=== PATIENT | female | born 1975 | race Caucasian/White ===

== ENCOUNTER 2018-09-14 11:35 | Emergency (ER) | payer SELFPAY ==
--- OUTSIDE RECORDS SUMMARY | 2018-09-14 11:37 | XMS REPORT | Clinical Summary ---
:[address] [facility] Address [address] [place] [address] Phone Care Team Providers Name Role Phone Unavailable Primary Care Provider Unavailable Allergies No Known Allergies Current Medications Prescription Sig. Disp. Refills Start Date End Date Status predniSONE (DELTASONE) 5 Take 5 mg by mouth Active MG tablet daily. loratadine (CLARITIN) 10 Take 10 mg by mouth Active mg tablet daily. acetaminophen-codeine Take 1 tablet by Active (TYLENOL #4) 300-60 mg mouth every 4 per tablet (four) hours as needed for Pain. ibuprofen (ADVIL,MOTRIN) Take 100 mg by Active 100 MG tablet mouth every 6 (six) hours as needed for Fever. Active Problems Not on file Social History Tobacco Use Types Packs/Day Years Used Date Current Every Day Smoker 1 25 Smokeless Tobacco: Never Used Tobacco Cessation: Ready to Quit: No; Counseling Given: Yes Sex Assigned at Date Recorded Not on file Last Filed Vital Signs Not on file Plan of Treatment Not on file Results Not on fileafter 09/13/2017
--- OUTSIDE RECORDS SUMMARY | 2018-09-14 11:38 | XMS REPORT | Continuity of Care Document ---
:1975 Author Organization Interface Problems Problem Status Onset Classification Date Comments Source Date Reported At risk of Active Problem 12/01/2017 Medical diabetes Group mellitus Multiple Active Problem 12/01/2017 Medical thyroid Group nodules Medications Medication Details Route Status Patient Ordering Order Source Instructions Provider Date Synthroid PO, Daily, Inactive MH 0 018 Medical Refill(s) Group Claritin Daily, 0 Active Refill(s) 018 Medical Group prednisolone 5 5 mg=1 Active MH MG Oral Tablet tab, PO, 018 Medical Daily, # 7 Group tab, 0 Refill(s) clindamycin 150 150 mg=1 Active MH mg oral capsule cap, PO, 018 Medical Q6H, # 28 Group cap, 0 Refill(s) carisoprodol 350 350 mg=1 Active MH mg oral tablet tab, PO, 018 Medical QID, 0 Group Refill(s) multivitamin Daily, 0 Active Refill(s) 018 Medical Group Acetaminophen 325 mg=1 Active 325 MG Oral cap, PO, 018 Medical Capsule TID, 0 Group [Tylenol] Refill(s) Ibuprofen 0 Active Refill(s) 018 Medical Group Allergies, Adverse Reactions, Alerts Substance Category Reaction Severity Reaction Status Date Comments Source type Reported Immunizations Immunization Date Given Site Status Last Updated Comments Source Hx influenza 11/06/2017 completed [facility] vaccine-unspecifi Group ed Results Order Results Value Reference Date Interpretation Comments Source Name Range Vital Signs Vital Sign Value Date Comments Source Height 165.1 cm 11/28/2017 Medical Group Weight 59.545 11/28/2017 Medical Group BMI Calculated 21.84 11/28/2017 Medical Group Systolic (mm Hg) 124 11/28/2017 Medical Group Diastolic (mm Hg) 77 11/28/2017 Medical Group Heart Rate 85 11/28/2017 Medical Group Encounters Location Location Encounter Encounter Reason Attending ADM DC Status Source Details Type Number For Provider Date Date Visit Outpatient [id number] [place] 11/28 [facility] LETY II Luis [facility] Outpatient [id number] Luis 11/28 11/29 [facility]2017 [facility] Upper Senior Procedures Procedure Code Date Perfomer Comments Source Ovary operation [id number] Medical Group
--- OUTSIDE RECORDS SUMMARY | 2018-09-14 11:38 | XMS REPORT ---
:1975 [facility] Address [address] [place] [address] Care Team Providers Name Role Phone HALIMA STEWART Unavailable Unavailable Problems This patient has no known problems. Allergies, Adverse Reactions, Alerts This patient has no known allergies or adverse reactions. Medications This patient has no known medications. Results Test Description Test Time Test Comments Text Results Atomic Results Result Comments CYTOLOGY 2017-09-17 Medical Cytology Report 14:11:00 Case: [id number] Authorizing Provider: Halima Stewart MD Collected: 09/11/2017 1100 Ordering Location: [facility] Radiology Main Received: 09/11/2017 1148 Pathologist: Jackie Gonzalez MD Specimen: Thyroid LEFT THYROID ISTHMUS, FNA (CYTOSPINS) - DIAGNOSTIC CATEGORY: BENIGN - ADENOMATOID NODULE WITH CYSTIC DEGENERATION (SEE COMMENT) Signing Pathologist Direct Phone Line: [phone] signed by Jackie Gonzalez MD on 09/17/2017 at 2:11 PMCytospins show clusters of bland follicular cells with Hurthle cell changes, in a background of proteinaceous material, neutrophils and occasional macrophages. No diagnostic features of papillary thyroid carcinoma are seen. Taken together, those findings are most compatible with adenomatoid nodule with cystic changes. Intradepartmental consultation: Dr. Jose Vallejo has reviewed this case and concurs with the diagnosis.[id number] thyroid isthmus nodule measuring 1.9 x 0.5 x 1.4 cmLEFT THYROID ISTHMUS FNA30 ml of cytorich red; 4 cytospinsCollected: 09/11/17Received: 08/25/17[facility], [address] [place] [address], [facility] of [facility], [address] [place] [address], CYTOLOGY 2017-09-17 Medical Cytology Report 14:09:00 Case: [id number] Authorizing Provider: Halima Stewart MD Collected: 09/11/2017 1100 Ordering Location: [facility] Radiology Ultrasound Received: 09/11/2017 1148 Pathologist: Jackie Gonzalez MD Specimen: Thyroid, Left LEFT MID THYROID FNA (CYTOSPINS,CELLBLOCK) - DIAGNOSTIC CATEGORY: BENIGN - ADENOMATOID NODULE WITH CYSTIC DEGENERATION (SEE COMMENT) Signing Pathologist Direct Phone Line: [phone] signed by Jackie Gonzalez MD on 09/17/2017 at 2:09 PMCytospins and cell block sections show clusters of bland follicular cells with focal Hurthle cell changes, in a background of scant colloid, frequent neutrophils and scattered macrophages. No diagnostic features of papillary thyroid carcinoma are seen. Taken together, those findings are most compatible with adenomatoid nodule with cystic changes. Intradepartmental consultation: Dr. Jose Vallejo has reviewed this case and concurs with the diagnosis.[id number], [id number] thyroid mid nodule measuring 1.2 x 0.7 x 0.9 cmLEFT MID THYROID RLX20qp of cytorich red; 4 cytospins, 1 cell blockCollected: 09/11/17Received: 09/11/17[facility], Department of Pathology, [address] [place] [address], [facility], Department of Pathology, [address] [place] [address], U/S, FINE NEEDLE 2017-09-11 Reason for FINAL REPORT PATIENT ID: ASPIRATION, 16:52:00 Exam:->thyroid [id number] Ultrasound guided fine THYROID single nodule needle aspiration biopsy, nontoxic 09/11/2017 Clinical History: Thyroid nodules Sedation: None. First Dyer: Yunier. Airways Operations Specialist: None. Estimated Blood Loss: none Specimen: 4 FNA samples. All placed in CytoRich fluid and sent to pathology. Technique: Informed consent was obtained. The risks of pain, bleeding, infection, injury to thyroid/adjacent structures and adverse medication reactions were discussed with the patient. After informed consent was obtained, the patient's thyroid gland was scanned. In the isthmus there is a cystic nodule which measures approximately 1.4 cm in diameter. In the upper pole of the left lobe there is a 1.2 cm nodule which contains microcalcifications. Both of these were targeted for fine-needle aspiration. After the skin was prepped and draped in the usual sterile manner and local anesthesia was achieved with 1% lidocaine, a 25 gauge needle was advanced into the left upper pole nodule, under direct sonographic observation. A total of 4 passes were made. Next a 22-gauge needle was used to aspirate the isthmus cyst. The patient tolerated the procedure well, without immediate complications. The patient was discharged from the department in good condition. Impression:Successful and uncomplicated ultrasound guided fine needle aspiration of the thyroid gland as described above. Signed: Ervin Valera MDReport Verified Date/Time: 09/11/2017 16:52:56 Reading Location: [address] Ultrasound Reading Room
--- OUTSIDE RECORDS SUMMARY | 2018-09-14 11:38 | XMS REPORT | Summary of Care ---
:1975 Author Organization [facility] Primary Care [facility] Address [address] [place] [address]- Encounter HQ Lauren(FIN) [id number] Date(s): 11/28/17 - 11/28/17 [facility] Primary Care [facility] [address] [place] [address] [phone] Discharge Disposition: Home or Self Care Attending Physician: Roberto Flores MD Referring Physician: Luis Maurice MD Vital Signs Most recent to oldest [Reference Range]: 1 Height 165.1 cm (11/28/17 11:12 AM) Blood Pressure [90-140/60-90 mmHg] 124/77 mmHg (11/28/17 11:12 AM) Peripheral Pulse Rate [60-100 bpm] 85 bpm (11/28/17 11:12 AM) Weight 59.545 kg (11/28/17 11:12 AM) Body Mass Index 21.84 m2 (11/28/17 11:12 AM) Problem List Condition Effective Dates Status Health Status Informant At risk of diabetes Active mellitus(Confirmed) Multiple thyroid nodules(Confirmed) Active Allergies, Adverse Reactions, Alerts Substance Reaction Severity Status NKDA Active Medications carisoprodol 350 mg oral tablet 350 mg=1 tab, PO, QID, 0 Refill(s) Start Date: 11/28/17 Status: OrderedClaritin Daily, 0 Refill(s) Start Date: 11/28/17 Status: Orderedclindamycin 150 mg oral capsule 150 mg=1 cap, PO, Q6H, # 28 cap, 0 Refill(s) Start Date: 11/28/17 Stop Date: 12/05/17 Status: Orderedibuprofen 0 Refill(s) Start Date: 11/28/17 Status: Orderedmultivitamin Daily, 0 Refill(s) Start Date: 11/28/17 Status: OrderedprednisoLONE 5 mg oral tablet 5 mg=1 tab, PO, Daily, # 7 tab, 0 Refill(s) Start Date: 11/28/17 Stop Date: 12/05/17 Status: OrderedSynthroid PO, Daily, 0 Refill(s) Start Date: 11/28/17 Stop Date: 11/28/17 Status: DiscontinuedTylenol 325 mg oral capsule 325 mg=1 cap, PO, TID, 0 Refill(s) Start Date: 11/28/17 Status: Ordered Results No data available for this section Immunizations Given and Recorded Vaccine Date Status Refusal Reason Hx influenza vaccine-unspecified 11/06/17 Recorded Procedures Procedure Date Related Diagnosis Body Site Ovary operation Social History Social History Type Response Smoking Status Current every day smoker; Type: Cigarettes; Exposure to Tobacco Smoke self; Cigarette Smoking Last 365 Days Yes; Reg Smoking Cessation Counseling No Assessment and Plan No data available for this section
--- NOTE | 2018-09-14 12:09 | EDPHYS ---
Physician Documentation [facility] Name: Cheyanne Gresham Age: 43 yrs Sex: Female : 1975 Arrival Date: 09/14/2018 Time: 11:38 Bed 18 Private MD: None, None ED Physician Aditya Maki HPI: 09/14 12:46 This 43 yrs old Female presents to ER via Ambulatory with complaints of snw Nausea, Diarrhea, Abdominal Pain. 12:46 The patient presents to the emergency department with nausea, diarrhea, abdominal pain. snw Possible causes: sick contacts, patient, "up to my elbows in his stuff" + C. diff. Associated signs and symptoms: Pertinent positives: diarrhea. Severity of symptoms: At their worst the symptoms were moderate severe in the emergency department the symptoms unable to provide sample. The patient has experienced a previous episode. The patient has not recently seen a physician. 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 - Social history:: Smoking status: Patient uses tobacco products, smokes one pack cigarettes per day. - Ebola Screening: : Patient denies travel to an Ebola-affected area in the 21 days before illness onset. ROS: 12:44 Constitutional: Negative for fever, chills, and weight loss, Eyes: Negative for injury, snw pain, redness, and discharge, ENT: Negative for injury, pain, and discharge, Neck: Negative for injury, pain, and swelling, Cardiovascular: Negative for chest pain, palpitations, and edema, Respiratory: Negative for shortness of breath, cough, wheezing, and pleuritic chest pain, Back: Negative for injury and pain, : Negative for injury, bleeding, discharge, and swelling, MS/Extremity: Negative for injury and deformity, Skin: Negative for injury, rash, and discoloration, Neuro: Negative for headache, weakness, numbness, tingling, and seizure. 12:44 Abdomen/GI: Positive for diarrhea, abdominal cramps. Exam: 12:37 Constitutional: This is a well developed, well nourished patient who is awake, alert, snw and in no acute distress. Head/Face: Normocephalic, atraumatic. Eyes: Pupils equal round and reactive to light, extra-ocular motions intact. Lids and lashes normal. Conjunctiva pale and sclera are non-icteric and not injected. Cornea within normal limits. Periorbital areas with no swelling, redness, or edema. ENT: Nares patent. No nasal discharge, no septal abnormalities noted. Tympanic membranes are normal and external auditory canals are clear. Oropharynx with no redness, swelling, or masses, exudates, or evidence of obstruction, uvula midline. Mucous membranes moist. Neck: Trachea midline, no thyromegaly or masses palpated, and no cervical lymphadenopathy. Supple, full range of motion without nuchal rigidity, or vertebral point tenderness. No Meningismus. Chest/axilla: Normal chest wall appearance and motion. Nontender with no deformity. No lesions are appreciated. Cardiovascular: Regular rate and rhythm with a normal S1 and S2. No gallops, murmurs, or rubs. Normal PMI, no JVD. No pulse deficits. Respiratory: Lungs have equal breath sounds bilaterally, clear to auscultation and percussion. No rales, rhonchi or wheezes noted. No increased work of breathing, no retractions or nasal flaring. Abdomen/GI: Soft, non-tender, with normal bowel sounds. No distension or tympany. No guarding or rebound. No evidence of tenderness throughout. Back: No spinal tenderness. No costovertebral tenderness. Full range of motion. Skin: Warm, dry with normal turgor. Normal color with no rashes, no lesions, and no evidence of cellulitis. MS/ Extremity: Pulses equal, no cyanosis. Neurovascular intact. Full, normal range of motion. Neuro: Awake and alert, GCS 15, oriented to person, place, time, and situation. Cranial nerves II-XII grossly intact. Motor strength 5/5 in all extremities. Sensory grossly intact. Cerebellar exam normal. Normal gait. Psych: Awake, alert, with orientation to person, place and time. Behavior, mood, and affect are within normal limits. Vital Signs: 11:52 BP 131 / 84; Pulse 84; Resp 16; Temp 98.2; Pulse Ox 99% on R/A; Weight 54.43 kg (R); aj1 Height 5 ft. 5 in. (165.10 cm) (R); Pain 0/10; 11:52 Body Mass Index 19.97 (54.43 kg, 165.10 cm) aj1 MDM: 12:08 Patient medically screened. snw 12:44 Data reviewed: vital signs, nurses notes. Data interpreted: Pulse oximetry: on room air snw is 99 %. Interpretation: normal. Counseling: I had a detailed discussion with the patient and/or guardian regarding: the historical points, exam findings, and any diagnostic results supporting the discharge/admit diagnosis, the presence of at least one elevated blood pressure reading (>120/80) during this emergency department visit, the need for outpatient follow up, to return to the emergency department if symptoms worsen or persist or if there are any questions or concerns that arise at home. Special discussion: Based on the history and exam findings, there is no indication for further emergent testing or inpatient evaluation. I discussed with the patient/guardian the need to see the primary care provider for further evaluation of the symptoms. Administered Medications: 12:26 Drug: vancoMYCIN 250 mg Route: PO; em 12:27 Follow up: Response: Medication administered at discharge. em 12:26 Drug: Bentyl 20 mg Route: PO; em 12:27 Follow up: Response: Medication administered at discharge. em Disposition: 15:18 Co-signature as Attending Physician, Aditya Maki MD I agree with the assessment and kdr plan of care. Disposition: 09/14/18 12:08 Discharged to Home. Impression: Diarrhea, unspecified. - Condition is Stable. - Discharge Instructions: Diarrhea, Adult, Clostridium Difficile Infection, Rehydration, Adult, Clostridium Difficile FAQs - WILLAMS. - Prescriptions for Flagyl 500 mg Oral Tablet - take 1 tablet by ORAL route every 8 hours for 10 days; 30 tablet. - Medication Reconciliation Form, Thank You Letter, Antibiotic Education, Prescription Opioid Use form. - Follow up: Private Physician; When: 2 - 3 days; Reason: Recheck today's complaints, Continuance of care, Re-evaluation by your physician. Follow up: Emergency Department; When: As needed; Reason: Worsening of condition. Signatures: Dispatcher [employer] [facility] Yolie Rosas, RN RN aj1 Aditya Maki MD MD kdr Cele Lynne, CENSUS TAKER-C CENSUS TAKER-Csnw King Lux, GEAR NICKER GEAR NICKER em Corrections: (The following items were deleted from the chart) 12:01 12:00 Occult Blood+PA.LAB.BRZ ordered. [facility] 12:28 12:08 09/14/2018 12:08 Discharged to Home. Impression: Diarrhea, unspecified. Condition em is Stable. Forms are Medication Reconciliation Form, Thank You Letter, Antibiotic Education, Prescription Opioid Use. Follow up: Private Physician; When: 2 - 3 days; Reason: Recheck today's complaints, Continuance of care, Re-evaluation by your physician. Follow up: Emergency Department; When: As needed; Reason: Worsening of condition. snw 14:39 12:28 09/14/2018 12:08 Discharged to Home. Impression: Diarrhea, unspecified. Condition snw is Stable. Discharge Instructions: Diarrhea, Adult, Clostridium Difficile Infection, Rehydration, Adult, Clostridium Difficile FAQs - WILLAMS. Prescriptions for vancomycin 250 mg Oral capsule - take 1 capsule by ORAL route every 6 hours; 40 capsule. and Forms are Medication Reconciliation Form, Thank You Letter, Antibiotic Education, Prescription Opioid Use. Follow up: Private Physician; When: 2 - 3 days; Reason: Recheck today's complaints, Continuance of care, Re-evaluation by your physician. Follow up: Emergency Department; When: As needed; Reason: Worsening of condition. em
--- NOTE | 2018-09-14 12:09 | ER ---
Nurse's Notes [facility] Name: Cheyanne Gresham Age: 43 yrs Sex: Female : 1975 Arrival Date: 09/14/2018 Time: 11:38 Bed 18 Private MD: None, None Diagnosis: Diarrhea, unspecified Presentation: 09/14 11:47 Presenting complaint: Patient states: Abdominal cramping, diarrhea, and nausea for the aj1 past couple of days. 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 States that she just finished taking cephalexin for a sinus infection and an infected toe. Denies vomiting. Transition of care: patient was not received from another setting of care. Onset of symptoms was September 12, 2018. Risk Assessment: Do you want to hurt yourself or someone else? Patient reports no desire to harm self or others. Initial Sepsis Screen: Does the patient meet any 2 criteria? No. Patient's initial sepsis screen is negative. Does the patient have a suspected source of infection? Yes: Acute abdominal pain. Care prior to arrival: None. 11:47 Method Of Arrival: Ambulatory [facility] 11:47 Acuity: ABBY 3 aj1 Triage Assessment: 11:52 General: Appears in no apparent distress. comfortable, Behavior is calm, cooperative, aj1 appropriate for age. Pain: Denies pain. Neuro: Level of Consciousness is awake, alert, obeys commands. Cardiovascular: Patient's skin is warm and dry. Respiratory: Airway is patent Respiratory effort is even, unlabored, Respiratory pattern is regular, symmetrical. GI: Reports cramping, diarrhea, nausea. 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 - Social history:: Smoking status: Patient uses tobacco products, smokes one pack cigarettes per day. - Ebola Screening: : Patient denies travel to an Ebola-affected area in the 21 days before illness onset. Screenin:10 Abuse screen: Denies threats or abuse. Nutritional screening: No deficits noted. em Tuberculosis screening: No symptoms or risk factors identified. Fall Risk None identified. Assessment: 12:10 General: Appears in no apparent distress. uncomfortable, Behavior is calm, cooperative. em Pain: Denies pain. Neuro: Level of Consciousness is awake, alert, obeys commands, Oriented to person, place, time, situation. Cardiovascular: Capillary refill < 3 seconds Patient's skin is warm and dry. Respiratory: Airway is patent Respiratory effort is even, unlabored, Respiratory pattern is regular, symmetrical. GI: Abdomen is flat, Stools are reported to be diarrhea. Abd is soft X 4 quads Abdomen is tender to palpation X 4 quads. Reports diarrhea, nausea, vomiting, Patient currently denies bloody stool. : No signs and/or symptoms were reported regarding the genitourinary system. EENT: No signs and/or symptoms were reported regarding the EENT system. Derm: Skin is intact, Skin is pink, warm \T\ dry. Musculoskeletal: Capillary refill < 3 seconds, Range of motion: intact in all extremities. Vital Signs: 11:52 BP 131 / 84; Pulse 84; Resp 16; Temp 98.2; Pulse Ox 99% on R/A; Weight 54.43 kg (R); aj1 Height 5 ft. 5 in. (165.10 cm) (R); Pain 0/10; 11:52 Body Mass Index 19.97 (54.43 kg, 165.10 cm) aj1 ED Course: 11:38 Patient arrived in ED. mr 11:38 None, None is Private Physician. mr 11:38 Cele Lynne FNP-C is [facility]. snw 11:38 Aditya Maki MD is Attending Physician. snw 11:51 Triage completed. aj1 11:52 Arm band placed on Patient placed in an exam room. aj1 12:02 King Lux LVN is Primary Nurse. em 12:10 Patient has correct armband on for positive identification. Bed in low position. Call em light in reach. Adult w/ patient. 12:10 No provider procedures requiring assistance completed. Patient did not have IV access em during this emergency room visit. 14:38 Primary Nurse role handed off by Lux, King, AGENT PRODUCER snw Administered Medications: 12:26 Drug: vancoMYCIN 250 mg Route: PO; em 12:27 Follow up: Response: Medication administered at discharge. em 12: Drug: Bentyl 20 mg Route: PO; em 12:27 Follow up: Response: Medication administered at discharge. em Outcome: 12:08 Discharge ordered by MD. snw 12:27 Discharged to home ambulatory, with family. em 12: Condition: good 12:27 Discharge instructions given to patient, Instructed on discharge instructions, follow up and referral plans. medication usage, Demonstrated understanding of instructions, follow-up care, medications, Prescriptions given X 1. 12:28 Patient left the ED. em 14:39 Patient left the ED. snw Signatures: Yolie Rosas RN RN aj1 Cele Lynne, MOLD CAPPER HELPER-C MOLD CAPPER HELPER-Csnw Clara Bird mr Kign Lux, AGENT PRODUCER AGENT PRODUCER em
[2018-09-14] MEDS ORDERED: DICYCLOMINE HCL 10 MG CAP ONE (12:19)
[2018-09-14] MEDS ORDERED: VANCOMYCIN ORAL SOLN 250 MG/5 ML OSYR PO ONE (12:30)
== END 2018-09-14 14:39 | disposition home or self-care (01) ==
LOC: ER 11:35
DX: R19.7 Diarrhea, unspecified (principal); M06.9 Rheumatoid arthritis, unspecified; F17.210 Nicotine dependence, cigarettes, uncomplicated
CPT/HCPCS: 99283

== ENCOUNTER 2020-08-03 08:30 | Day surgery (SDC) | payer SELFPAY ==
--- OUTSIDE RECORDS SUMMARY | 2020-08-03 08:46 | XMS REPORT | Clinical Summary ---
:1975 Author Organization [facility] Address [address] [place] [address] Care Team Providers Name Role Phone Brigette Primary Care Provider Allergies No Known Allergies Medications Medication Sig Dispensed Refills Start Date End Date Status predniSONE (DELTASONE) Take 5 mg by mouth 0 Active 5 MG tablet daily. loratadine (CLARITIN) Take 10 mg by 0 Active 10 mg tablet mouth daily. acetaminophen-codeine Take 1 tablet by 0 Active (TYLENOL #4) 300-60 mg mouth every 4 per tablet (four) hours as needed for Pain. ibuprofen Take 100 mg by 0 Activ e (ADVIL,MOTRIN) 100 MG mouth every 6 tablet (six) hours as needed for Fever. Active Problems Not on file Social History Tobacco Use Types Packs/Day Years Used Date Current Every Day Smoker 1 25 Smokeless Tobacco: Never Used Tobacco Cessation: Ready to Quit: No; Co unseling Given: Yes Sex Assigned at Date Recorded Not on file Job Start Date Occupation Industry Not on file Not on file Not on file Travel History Travel Start Travel End No recent travel history available. Last Filed Vital Signs Not on file Plan of Treatment Not on file Results Not on fileafter 08/03/2019 Insurance Payer Benefit Plan / Group Subscriber ID Type Phone A ddress [employer] PA[employer] OP DIAGNSTC IMGING PKG xxxxxxxxx (Work)
--- OUTSIDE RECORDS SUMMARY | 2020-08-03 08:47 | XMS REPORT | Continuity of Care Document ---
:1975 Author Organization [facility] t Address [address] [place] [address] Care Team Providers Name Role Phone Sharpless Primary Care Physician Alex Arzate II Attending Clinician Odalys STEWART Attending Clinician Unavailable Frankie SCHULTZ Admitting Clinician Unavailable Problems Condition Condition Condition Status Onset Resolution Last Treating Co mments Source Name Details Category Date Date Treatment Clinician Date At risk of Problem Active 2019-09-02 M emoria diabetes 23:22:36 l mellitus At risk Jodee nn (finding) of diabetes mellitus (finding) Active Problem 09/02/2019 Medical Group Goiter Problem Active 2019-09-02 Memor ia (disorder) 23:22:36 l Goiter Luis (disorder) Active Problem 09/02/2019 Medical Group Multinodul Problem Active 2019-09-02 M emoria ar goiter 23:22:36 l (disorder) Cy n Multinodul ar goiter (disorder) Active Problem 09/02/2019 [facility] Allergies, Adverse Reactions, Alerts Allergy Allergy Status Severity Reaction(s) Onset Inactive Treating Comm ents Source Name Type Date Date Clinician No Known No Known Active Memori a Medicati Medicati l on on Luis Pires Allergtanya s s Social History Social Habit Start Date Stop Date Quantity Comments Source Sex Assigned At [facility] Cigarettes smoked 2017-09-11 2017-09-11 [facility] - current (pack per 00:00:00 00:00:00 [facility] Center day) - Reported Cigarette pack-years 2017-09-11 2017-09-11 [facility] - 00:00:00 00:00:00 [facility] Smoking Status Start Date Stop Date Source Social History 2019-08-31 14:33:51 [facility] Medications Ordered Filled Start Stop Current Ordering Indication Dosage Frequency Signature Comments Components Source Medication Medication Date Date Medication? Clinician (SIG) Name Name Synthroid 0 No PO, Daily, Me moria 1-04 0 l 17:30: Refill(s) Luis Claritin 2018-0 Yes Daily, 0 Memor ia 1-04 Refill(s) l 17:30: [place] prednisolon 2018-0 Yes 5 mg = 1 Me moria e 5 MG Oral 1-04 tab, PO, l Tablet 17:30: Daily, # 7 Jodee nn 00 tab, 0 Refill(s) clindamycin 0 Yes 150 mg = 1 Memoria 150 mg oral 1-04 cap, PO, l capsule 17:30: Q6H, # 28 Jodee nn 00 cap, 0 Refill(s) carisoprodo 0 Yes 350 mg = 1 Memoria l 350 mg 1-04 tab, PO, l oral tablet 17:30: QID, 0 Herm bryan 00 Refill(s) multivitami 2018-0 Yes Daily, 0 Me moria n 1-04 Refill(s) l 17:30: [place] Acetaminoph 2017-0 Yes 325 mg = 1 Memoria en 325 MG 1-04 cap, PO, l Oral 17:30: TID, 0 [place] Capsule 00 Refill(s) [Tylenol] Ibuprofen 2017-0 Yes 0 Memoria 1-04 Refill(s) l 17:30: Luis Synthroid 2018-0 No PO, Daily, Me moria 1-04 0 l 17:30: Refill(s) [place] 00 Claritin 2018-0 Yes Daily, 0 Memor ia 1-04 Refill(s) l 17:30: Luis 00 prednisolon 2018-0 Yes 5 mg = 1 Me moria e 5 MG Oral 1-04 tab, PO, l Tablet 17:30: Daily, # 7 Jodee nn 00 tab, 0 Refill(s) clindamycin 2018-0 Yes 150 mg = 1 Memoria 150 mg oral 1-04 cap, PO, l capsule 17:30: Q6H, # 28 Jodee nn 00 cap, 0 Refill(s) carisoprodo Yes 350 mg = 1 Memoria l 350 mg 1-04 tab, PO, l oral tablet 17:30: QID, 0 Herm bryan 00 Refill(s) multivitami 2018-0 Yes Daily, 0 Me moria n 1-04 Refill(s) l 17:30: [place] 00 Acetaminoph Yes 325 mg = 1 Memoria en 325 MG 1-04 cap, PO, l Oral 17:30: TID, 0 Luis Capsule 00 Refill(s) [Tylenol] Ibuprofen Yes 0 Memoria 1-04 Refill(s) l 17:30: Luis 00 ibuprofen 2016-11 Yes 100mg Take [address] [facility] (ADVIL,MOTR 0-17 mg by [facility] [place]) 100 MG 11:03: mouth Medica l tablet 52 every 6 Center (six) hours as needed for Fever. predniSONE 2016-11 Yes 5mg QD Take [address] [facility] [address] [facility] (DELTASONE) 0-17 by mouth Luke s - 5 MG tablet 11:03: daily. Medi kirt 51 Center loratadine 2016-11 Yes 10mg QD Take [address] (CLARITIN) 0-17 by mouth [facility] - 10 mg 11:03: daily. Medical tablet 51 Center acetaminoph 2016-11 Yes 1{tbl} Take [address] en-codeine 0-17 tablet by Luke s - (TYLENOL 11:03: mouth Medical #4) 300-60 51 every 4 Center mg per (four) tablet hours as needed for Pain. Vital Signs Vital Name Observation Time Observation Value Comments Source Systolic (mm Hg) 2019-08-31 14:32:00 Elmer Smith Diastolic (mm Hg) 2019-08-31 14:32:00 Mem orial Luis Heart Rate 2019-08-31 14:32:00 [facility] Temperature Oral (F) 2019-08-31 14:32:00 98.3 F [facility] Height 2019-08-31 14:32:00 165.1 cm [facility] Weight 2019-08-31 14:32:00 [facility] BMI Calculated 2019-08-31 14:32:00 Lang al Luis Height 2017-11-28 17:12:00 165.1 cm [facility] Weight 2017-11-28 17:12:00 Rebecca Smith BMI Calculated 2017-11-28 17:12:00 Lang Suero Systolic (mm Hg) 2017-11-28 17:12:00 Elmer Smith Diastolic (mm Hg) 2017-11-28 17:12:00 Soledad Smith Heart Rate 2017-11-28 17:12:00 Rebecca Smith Procedures Procedure Date / Time Performed Performing Clinician [facility] PAP smear 2019-07-13 05:00:00 [facility] preparation<sup>1</sup> Ovary operation [facility] Luis Encounters Start End Encounter Admission Attending Care Care Encounter Source Date/Time Date/Time Type Type Clinicians Facility Department ID 2019-08-31 2019-08-31 Outpatient SIS Arzate [facility] [id number] 08:00:00 23:59:59 Edward Alex 2019-08-31 2019-08-31 Outpatient SIS Arzate MG [id number] 08:00:00 23:59:59 Edward Alex 2017-11-28 2017-11-28 [facility] [id number] 11:15:00 23:59:59 Edward Alex 2017-11-28 2017-11-28 Outpatient Huey [facility] [id number] 11:15:00 23:59:59 Edward Estancia Results Test Description Test Time Test Comments Results Result [facility] Comments CYTOLOGY 2017-09-17 Medical Cytology Report 14:11:00 Case: [id number] Authorizing Provider: German Stewart MD Collected: 09/11/2017 1100 Ordering Location: [facility] Radiology Main Received: 09/11/2017 1148 Pathologist: Jackie Gonzalez MD Specimen: Thyroid LEFT THYROID ISTHMUS, FNA (CYTOSPINS) - DIAGNOSTIC CATEGORY: BENIGN - ADENOMATOID NODULE WITH CYSTIC DEGENERATION (SEE COMMENT) Signing Pathologist Direct Phone Line: [phone] lly signed by Jackie Gonzalez MD on 09/17/2017 [...] reviewed this case and concurs with the diagnosis.[id number] thyroid isthmus nodule measuring 1.9 x 0.5 x 1.4 cmLEFT THYROID ISTHMUS FNA30 ml of cytorich red; 4 cytospinsCollected: 09/11/17[facility]: [facility], [address] [place] [address], [facility], Department of [facility]ology, [address] [place] [address], CYTOLOGY 2017-09-17 Medical Cytology Report 14:09:00 Case: [id number] Authorizing Provider: German Stewart MD Collected: 09/11/2017 1100 Ordering Location: [facility] Radiology Ultrasound Received: 09/11/2017 1148 Pathologist: Jackie Gonzalez MD Specimen: Thyroid, Left LEFT MID THYROID FNA (CYTOSPINS,CELLBLOCK) - DIAGNOSTIC CATEGORY: BENIGN - ADENOMATOID NODULE WITH CYSTIC DEGENERATION (SEE COMMENT) Signing Pathologist Direct Phone Line: [phone] lly signed by Jackie Gonzalez MD on 09/17/2017 [...] reviewed this case and concurs with the diagnosis.[id number], 668[address]Govg thyroid mid nodule measuring 1.2 x 0.7 x 0.9 cmLEFT MID THYROID FPL66to of cytorich red; 4 cytospins, 1 cell blockCollected: 09/11/17Received: 09/11/17[facility], Department of [facility]ology, [address] [place] [address], [facility], Department of Pathology, [address] [place] [address], U/S, FINE NEEDLE 2017-09-11 Reason for FINAL REPORT PATIENT ASPIRATION, 16:52:00 Exam:->thyroid ID: [id number] THYROID single nodule Ultrasound guided fine nontoxic needle aspiration biopsy, 09/11/2017 Clinical History: Thyroid nodules Sedation: None. Fitness Center Attendant: Yunier. Water And Gas Helper: None. Estimated Blood Loss: none Specimen: 4 [...] MDReport Verified Date/Time: 09/11/2017 16:52:56 Reading Location: [address] Ultrasound Reading Room
--- OUTSIDE RECORDS SUMMARY | 2020-08-03 08:47 | XMS REPORT | Continuity of Care Document ---
:1975 Author Organization [facility] [employer] Care Team Providers Name Role Phone [facility] Unavailable Un available Problems Problem Status Onset Classification Date Comments Sourc e Date Reported At risk of Active Problem 09/02/2019 Medic al diabetes Group mellitus (finding) Goiter Active Problem 09/02/2019 Medica l (disorder) Group Multinodular Active Problem 09/02/2019 Med ical goiter Group (disorder) Medications Medication Details Route Status Patient Ordering Order Source Instructions Provider Date Synthroid PO, Daily, Inactive MH 0 018 Medical Refill(s) Group Claritin Daily, 0 Active MH Refill(s) 018 Medical Group prednisolone 5 5 mg = 1 Active MH MG Oral Tablet tab, PO, 018 Medical Daily, # 7 Group tab, 0 Refill(s) clindamycin 150 150 mg = 1 Active MH mg oral capsule cap, PO, 018 Medical Q6H, # 28 Group cap, 0 Refill(s) carisoprodol 350 350 mg = 1 Active MH mg oral tablet tab, PO, 018 Medical QID, 0 Group Refill(s) multivitamin Daily, 0 Active MH Refill(s) 018 Medical Group Acetaminophen 325 mg = 1 Active MH 325 MG Oral cap, PO, 018 Medical Capsule TID, 0 Group [Tylenol] Refill(s) Ibuprofen 0 Active MH Refill(s) 018 Medical Group Allergies, Adverse Reactions, Alerts Substance Category Reaction Severity Reaction Status Date Comments S ource type Reported No Known Assertion Drug Medication allergy Medic al Allergies Group Immunizations Immunization Date Given Site Status Last Updated Comments Vivian rce Hx influenza 11/06/2017 completed Huey Med ical vaccine-unspecifi Gr oup ed Results No Data Provided for This Section Pathology Reports No Data Provided for This Section Diagnostic Reports No Data Provided for This Section Consultation Notes No Data Provided for This Section Discharge Summaries No Data Provided for This Section History and Physicals No Data Provided for This Section Vital Signs Vital Sign Value Date Comments Source Systolic (mm Hg) 122 08/31/2019 Medical Group Diastolic (mm Hg) 83 08/31/2019 Medical Group Heart Rate 87 08/31/2019 Medical Grou p Temperature Oral (F) 98.3 F 08/31/2019 Medi kirt Group Height 165.1 cm 08/31/2019 Medical Grou p Weight 56.364 08/31/2019 Medical Grou p BMI Calculated 20.68 08/31/2019 Medical Gr oup Height 165.1 cm 11/28/2017 Medical Grou p Weight 59.545 11/28/2017 Medical Grou p BMI Calculated 21.84 11/28/2017 Medical Gr oup Systolic (mm Hg) 124 11/28/2017 Medical Group Diastolic (mm Hg) 77 11/28/2017 Medical Group Heart Rate 85 11/28/2017 Medical Grou p Encounters Location Location Encounter Encounter Reason Attending ADM IN Stat us Source Details Type Number For Provider Date Date Visit Outpatient [id number] EDWARD 11/[address] [facility] Cy n [facility] Outpatient [id number] Timberly 11/28 11/29 [facility]2017 [facility] Outpatient [id number] Edward 08/31 [facility] n [facility] Outpatient [id number] Edward 08/31 09/01 [facility] /2018 Medic al Care Group [facility] Procedures Procedure Code Date Perfomer Comments Source PAP smear [id number] 07/13/2019 negative per Medical preparation<sup> patient Group 1</sup> Ovary operation [id number] Medica l Group Assessment and Plan No Data Provided for This Section Plan of Care No Data Provided for This Section Social History Social History Date Source Social History TypeResponse 08/31/2019 Medical G roup Smoking Status Current every day smoker; Type: Cigarett es; Exposure to Tobacco Smoke self; Cigarette Smoking Last 365 Days Yes; Reg Smoking Cessation Counseling No entered on: 08/31/19 Family History No Data Provided for This Section Advance Directives No Data Provided for This Section Functional Status No Data Provided for This Section
[2020-08-03] MEDS ORDERED: Ringers Lactate 1,000 ML IV ONE ×2 (08:52→10:36)
[2020-08-03] MEDS ORDERED: propofoL 200 MG/20 ML VIAL IV ONE (10:25)
--- NOTE | 2020-08-03 11:07 | ENDO RPT ---
[address], [address] EGD PROCEDURE REPORT EXAM DATE: 08/03/2020 PATIENT NAME: Cheyanne Gresham MR#: [id number] BIRTHDATE: 1975 ATTENDING: Ej Goncalves DR STATUS: outpatient HARNESS CUTTER: Amado Clemons and Rachna Blue RN INDICATIONS: The patient is a 45 yr old Female here for an EGD due to abdominal pain, mid epigastric abdominal pain, dyspepsia, heartburn, and nausea PROCEDURE PERFORMED: EGD with biopsy for H. pylori MEDICATIONS: Per Anesthesia. TOPICAL ANESTHETIC: none CONSENT: The patient understands the risks and benefits of the procedure and understands that these risks include, but are not limited to: sedation, allergic reaction, infection, perforation and/or bleeding. Alternative means of evaluation and treatment include, among others: physical exam, x-rays, and/or surgical intervention. The patient elects to proceed with this endoscopic procedure. DESCRIPTION OF PROCEDURE: During intra-op preparation period all mechanical medical equipment was checked for proper function. Hand hygiene and appropriate measures for infection prevention was taken. Procedure, possible complications, and alternatives including but not limited to the possibility of bleeding, perforation, tear, infection, sepsis, need for surgery, need for blood transfusion, and anesthesia related complications were explained to the patient. After the risks, benefits and alternatives of the procedure were thoroughly explained, Informed consent was verified, confirmed and timeout was successfully executed by the treatment team. The patient was placed in the left lateral position. The patient was anesthetized with topical anesthesia. Through the anesthetized oropharyngeal area, the scope was passed without any difficulty. The EC-[id number] ([id number]) and Pentax [id number] ([id number]) endoscope was introduced through the mouth and advanced to the second portion of the duodenum. Retroflexed views revealed a small hiatal hernia. The gastroscope was then slowly withdrawn and removed. Multiple erosions were found in the body and the antrum of the stomach. A biopsy for H. pylori was taken. Multiple biopsies were obtained and sent to pathology. Multiple ulcers were found in the antrum. A biopsy for H. pylori was taken. A small hiatal hernia was found in the gastroesophageal junction. Located 37 cm from the point of entry. A biopsy for H. pylori was taken. Irregular Z-Line - Biopsied ADVERSE EVENTS: There were no complications. IMPRESSIONS: 1. Multiple erosions were found in the body and the antrum of the stomach 2. Hiatus hernia 3. Pyloric channel ulcer RECOMMENDATIONS: 1. acid suppression therapy 2. anti-reflux regimen 3. await biopsy results 4. Protonix 40mg PO BID, Carafate 5. follow-up: office 2 week(s) 6. avoid NSAIDS 7. follow-up of helicobacter pylori status, treat if indicated REPEAT EXAM: for EGD. Pending Biopsy Ej Goncalves DR eSigned: Ej Goncalves DR 08/03/2020 11:07 AM cc: CPT CODES: ICD9 CODES: PATIENT NAME: Cheyanne Gresham MR#: [id number]
[2020-08-03 11:09] VITALS: O2SAT 100
--- NOTE | 2020-08-03 11:11 | ENDO RPT ---
[address], [address] COLONOSCOPY PROCEDURE REPORT EXAM DATE: 08/03/2020 PATIENT NAME: Cheyanne Gresham MR #: [id number] BIRTHDATE: 1975 ATTENDING: Ej Goncalves DR STATUS: outpatient EMPLOYEE COMMUNICATIONS SPECIALIST: Rachna Blue RN and Amado Mejia [facility] INDICATIONS: The patient is a 45 yr old Female here for a colonoscopy due to abdominal pain PROCEDURE PERFORMED: Colonoscopy MEDICATIONS: Per Anesthesia. ESTIMATED BLOOD LOSS: None CONSENT: The patient understands the risks and benefits of the procedure and understands that these risks include, but are not limited to: sedation, allergic reaction, infection, perforation and/or bleeding. Alternative means of evaluation and treatment include, among others: physical exam, x-rays, and/or surgical intervention. The patient elects to proceed with this endoscopic procedure. DESCRIPTION OF PROCEDURE: During intra-op preparation period all mechanical medical equipment was checked for proper function. Hand hygiene and appropriate measures for infection prevention was taken. Procedure, possible complications, alternatives including, but not limited to possibility of bleeding, perforation, tear, infection, sepsis, need for surgery, need for blood transfusion, were explained to the patient. After the risks, benefits and alternatives of the procedure were thoroughly explained, Informed consent was verified, confirmed and timeout was successfully executed by the treatment team. The patient was placed in the left lateral position. A digital rectal exam was performed and revealed internal hemorrhoids. After appropriate level of anesthesia, the scope was passed. The EC-[id number] ([id number]) endoscope was introduced through the anus and advanced to the cecum, which was identified by both the appendix and ileocecal valve. The quality of the prep was inadequate. The instrument was then slowly withdrawn as the colon was fully examined. Scope withdrawal time was 15 minutes. COLON FINDINGS: A normal appearing cecum, ileocecal valve, and appendiceal orifice were identified. the ascending, transverse, descending, sigmoid colon, and rectum appeared unremarkable. Retroflexed views revealed no abnormalities. The scope was then completely withdrawn from the patient and the procedure terminated. ADVERSE EVENTS: There were no complications. IMPRESSIONS: A normal appearing cecum, ileocecal valve, and appendiceal orifice were identified. the ascending, transverse, descending, sigmoid colon, and rectum appeared unremarkable RECOMMENDATIONS: 1. avoid NSAIDS for 2 weeks 2. follow-up: office 2 week(s) 3. Monitor for any evidence of rectal bleeding. 4. hemorrhoidal hygiene RECALL: Return in 1 year(s) for Colonoscopy. Repeat Colonoscopy within the year due to poor prep, will use 2 day prep for repeat colonoscopy Ej Goncalves DR eSigned: Ej Goncalves DR 08/03/2020 11:10 AM cc: CPT CODES: ICD9 CODES: PATIENT NAME: Cheyanne Gresham MR#: [id number]
[2020-08-03 11:22] VITALS: BP 132/64; TEMP 97
[2020-08-03] MEDS ORDERED: LIDOCAINE 1% MPF 5 ML VIAL ONE (11:22)
== END 2020-08-03 11:36 | disposition home health service (06) ==
LOC: OR 08:30
PROVIDERS: ATTEND Surgery
PROC: 0DB68ZX Excision of Stomach, Via Natural or Artificial Opening Endoscopic, Diagnostic (ICD-10-PCS; 2020-08-03)
PROC: 0DB48ZX Excision of Esophagogastric Junction, Via Natural or Artificial Opening Endoscopic, Diagnostic (ICD-10-PCS; principal; 2020-08-03 10:00)
PROC: 0DB78ZX Excision of Stomach, Pylorus, Via Natural or Artificial Opening Endoscopic, Diagnostic (ICD-10-PCS; 2020-08-03 10:00)
DX: K29.50 Unspecified chronic gastritis without bleeding (principal); K44.9 Diaphragmatic hernia without obstruction or gangrene; K21.0 Gastro-esophageal reflux disease with esophagitis; K25.7 Chronic gastric ulcer without hemorrhage or perforation; K25.9 Gastric ulcer, unspecified as acute or chronic, without hemorrhage or perforation; K64.8 Other hemorrhoids; K59.09 Other constipation; Z20.828 Contact with and (suspected) exposure to other viral communicable diseases
CPT/HCPCS: 81025; 88305; 88312; J2704; J7120; U0002